=== PATIENT | female | born 1985 | race Caucasian/White ===

== ENCOUNTER → 2018-03-11 15:40 | Outpatient (CLI) | payer OTHER, SELFPAY ==
[2018-03-11 18:05] LABS: CRP 7.71 mg/L (0.0-3.0)
[2018-03-14 16:10] LABS: Endomysial Antibody IgA Negative (Negative)
[2018-03-15 11:59] LABS: Immunoglobulin A < 5 mg/dL (87-352); t-Transglutaminase IgA <2 U/mL (0-3)
== END ==
PROVIDERS: Family Provider Nurse Practitioner Family; PCP Nurse Practitioner Family; Visit Provider Internal Medicine Gastroenterology
DX: R19.7 Diarrhea, unspecified (principal)
CPT/HCPCS: 36415; 82784; 83516; 86140; 86255